=== PATIENT | male | born 1960 | race Caucasian/White ===

== ENCOUNTER 2018-05-09 14:46 | Outpatient (CLI) | payer MEDICAID, SELFPAY ==
[2018-05-09 15:36] LABS: D-Dimer 431 ng/mlFEU (<500)
== END 2018-05-09 15:06 ==
PROVIDERS: PCP Family Medicine; Visit Provider Nurse Practitioner
DX: R06.02 Shortness of breath (principal)
CPT/HCPCS: 36415; 85379